=== PATIENT | male | born 1985 | race Caucasian/White ===

== ENCOUNTER 2016-06-23 05:55 | Emergency (ER) | payer SELFPAY ==
[~2016-06-23] VITALS: Ht 175.3 cm; Wt 90.0 kg
[2016-06-23 06:25] VITALS: BP 149/92
== END 2016-06-23 07:04 | disposition left against medical advice (07) ==
LOC: ER 05:59
DX: Z03.89 Encounter for observation for other suspected diseases and conditions ruled out (principal); I10 Essential (primary) hypertension; Z59.0 Homelessness
CPT/HCPCS: 99283